=== PATIENT | female | born 1940 | race Caucasian/White ===

== ENCOUNTER 2023-10-06 09:17 | Emergency (ER) | payer MEDICARE ==
[~2023-10-06] VITALS: Ht 162.6 cm; Wt 59.0 kg
[2023-10-06 09:21] VITALS: BP 148/83; PULSE 84; RESP 18; TEMP 98.2; O2SAT 96
[2023-10-06 10:38] LABS: BILIRUBIN,URINE NEGATIVE (NEGATIVE); BLOOD, URINE TRACE-I (NEGATIVE); COLOR,URINE YELLOW (YELLOW); LEUKOCYTE ESTERASE ,URINE 1+ (NEGATIVE); NITRITE, URINE NEGATIVE (NEGATIVE); PH,URINE 5.5 (5.0-9.0); PROTEIN,URINE NEGATIVE (NEGATIVE); UGLUCOSE NEGATIVE (NEGATIVE); UROBILINOGEN,URINE 0.2 EU/dL (0.2 - 1)
[2023-10-06 10:40] LABS: APPEARANCE,URINE SLIGHTLY HAZY (CLEAR)
[2023-10-06 10:43] LABS: BACTERIA,URINE 2+ /HPF (None Seen); MUCUS,URINE 1+ /LPF (None Seen); RBC,URINE 0-5 /HPF (0-5); SQUAMOUS EPITHELIAL CELL,UR 4-10 (MOD) /LPF (0-3 (FEW))
[2023-10-06] MEDS: LIDOCAINE 5% 1 EA PATCH TP ONE (10:55)
[2023-10-06] MEDS: CYCLOBENZAPRINE 10 MG TAB PO ONE (11:41)
[2023-10-06] MEDS: cephALEXin 500 MG CAP PO ONE (12:04)
[2023-10-06] MEDS: traMADol 50 MG TAB PO ONE (12:04)
[2023-10-06] MEDS ORDERED: CEPH-588 PO (12:57)
[2023-10-06] MEDS ORDERED: TRAM50TA3 PO (12:57)
[2023-10-06 13:15] VITALS: BP 148/83; PULSE 84; RESP 18; TEMP 98.2; O2SAT 96
== END 2023-10-06 13:15 | disposition home or self-care (01) ==
LOC: MED 09:17
DX: N39.0 Urinary tract infection, site not specified (principal); M48.56XA Collapsed vertebra, not elsewhere classified, lumbar region, initial encounter for fracture; E78.5 Hyperlipidemia, unspecified; I48.91 Unspecified atrial fibrillation; I12.9 Hypertensive chronic kidney disease with stage 1 through stage 4 chronic kidney disease, or unspecified chronic kidney disease; N18.9 Chronic kidney disease, unspecified; E03.9 Hypothyroidism, unspecified; F03.90 Unspecified dementia, unspecified severity, without behavioral disturbance, psychotic disturbance, mood disturbance, and anxiety; Z79.899 Other long term (current) drug therapy; Z88.6 Allergy status to analgesic agent; Z88.5 Allergy status to narcotic agent; Z88.8 Allergy status to other drugs, medicaments and biological substances
CPT/HCPCS: 72110; 72170; 81001; 87086; 99284